=== PATIENT | male | born 1975 | race Hispanic/Latino ===

== ENCOUNTER 2017-11-08 09:26 | Day surgery (SDC) | payer BC ==
[2017-11-07 11:48] VITALS: BMI 36.3
[2017-11-08 10:00] VITALS: TEMP 97.7
[2017-11-08 10:12] LABS: BLOOD UREA NITROGEN 15 mg/dL (7-21); CALCIUM 9.7 mg/dL (8.4-10.5); GFR AFRICAN-AMERICAN > 60; GFR NON-AFRICAN AMERICAN > 60
[2017-11-08 10:14] LABS: BASO # 0.03 K/mm3 (0.0-2.0); BASO % 0.4 % (0.0-3.0); EOS # 0.3 (0.0-0.7); EOS % 3.6 % (1.5-5.0); GRAN # 4.58 (1.4-6.5); GRAN % 66.5 % (50.0-68.0); HEMOGLOBIN 16.3 g/dL (14.0-18.0); LYMPH # 1.5 (1.2-3.4); LYMPH % 22.4 % (22.0-35.0); MEAN CELL VOLUME 88.1 fl (80.0-105.0); MEAN CORPUSCULAR HEMOGLOBIN 29.8 pg (25.0-35.0); MEAN CORPUSCULAR HGB CONC 33.8 g/dl (31.0-37.0); MEAN PLATELET VOLUME 9.1 fl (7.0-11.0); MONO # 0.5 (0.1-0.6); MONO % 7.1 % (1.0-6.0); RBC 5.47 10^6/uL (3.5-6.1); RED CELL DISTRIBUTION WIDTH 13.4 % (11.5-14.5); WHITE BLOOD COUNT 6.9 10^3/ul (4.5-11.0)
[2017-11-08 10:19] LABS: INR 0.98 (0.93-1.08); PARTIAL THROMBOPLASTIN TIME 33.6 Seconds (25.1-36.5); PROTHROMBIN TIME 11.3 SECONDS (9.4-12.5)
[2017-11-08] MEDS ORDERED: Midazolam 2 MG/2 ML VIAL ONE ×2 (11:47→12:18)
[2017-11-08] MEDS ORDERED: Lidocaine 1% Inj (20ml) ONE (12:07)
[2017-11-08] MEDS ORDERED: Oxycodone/Acetaminophen 5/325 mg Tab PO PRN (13:14)
[2017-11-08] MEDS ORDERED: Sodium Chloride 0.45% 1,000 ML IV SCH (13:15)
[2017-11-08 13:40] VITALS: RESP 18
[2017-11-08 14:06] VITALS: O2SAT 94
[2017-11-08 15:06] VITALS: BP 130/65; PULSE 88
--- NOTE | 2017-11-08 19:31 | CT ---
PROCEDURE: CT guided left renal biopsy. HISTORY: 5 cm left renal lesion. Solid on ultrasound. Evaluate for malignancy P PHYSICIAN(S): Jack Crews MD. TECHNIQUE: The relative risks and indications of the procedure were explained to the patient and consent obtained. The patient was placed prone on the CT scanner and preliminary images through the kidneys obtained. Conscious sedation and monitoring were provided throughout the procedure by a nurse. There is a well-circumscribed 5 cm low-attenuation mass in the posterior aspect of the left kidney.. A posterior approach was selected and the area prepped and draped in the usual sterile fashion. 1% Xylocaine was used to anesthetize the skin and soft tissues. A 17-gauge guiding needle was advanced into the 5 cm low-attenuation mass. Approximately 8 cc of clear then patent fluid was aspirated. The specimen was sent for cytology. Using coaxial technique, core biopsies of the residual wall were obtained. The postprocedure images show no evidence of significant hemorrhage. IMPRESSION: 1. CT-guided left renal aspiration and biopsy as described above.
--- NOTE | 2017-11-08 19:33 | CT ---
PROCEDURE: CT guided left periaortic lymph node biopsy. HISTORY: 3 cm left periaortic lymph node. Scattered smaller lymph nodes in the mesenteric. Evaluate for lymphoma. PHYSICIAN(S): Jack Crews MD. TECHNIQUE: The relative risks and indications of the procedure were explained to the patient and consent obtained. The patient was placed prone on the CT scanner and preliminary images through the abdomen obtained. Conscious sedation and monitoring were provided throughout the procedure by a nurse. There is a 3 cm left periaortic lymph known below the renal vessels. A left posterior approach was selected and the area prepped and draped in the usual sterile fashion. 1% Xylocaine was used to anesthetize the skin and soft tissues. A 17-gauge guiding needle was advanced into the 3 cm left periaortic lymph node. Its position was confirmed with CT. Using coaxial technique, multiple core biopsies were obtained. The postprocedure images show no evidence of significant hemorrhage. IMPRESSION: 1. CT-guided left periaortic lymph node biopsy as described above. Specimens were sent for histology and flow cytometry
== END 2017-11-08 15:40 | disposition home or self-care (01) ==
LOC: SDS 09:26
PROVIDERS: ATTEND Radiology Vascular & Interventional Radiology
DX: C85.13 Unspecified B-cell lymphoma, intra-abdominal lymph nodes (principal); N28.89 Other specified disorders of kidney and ureter
CPT/HCPCS: 36415; 49180; 50200; 77012; 80048; 85025; 85610; 85730; 88108; 88305; 99152; 99153; J2250; J2405; J3010; J7030

== ENCOUNTER 2017-12-30 21:05 | Observation (INO) | payer BC ==
[2017-12-30 21:12] VITALS: BMI 37.5
[2017-12-30 21:53] LABS: BASO # 0.05 K/mm3 (0.0-2.0); BASO % 0.7 % (0.0-3.0); EOS # 0.2 (0.0-0.7); EOS % 2.6 % (1.5-5.0); GRAN # 5.18 (1.4-6.5); HEMOGLOBIN 14.5 g/dL (14.0-18.0); LYMPH # 0.9 (1.2-3.4); LYMPH % 12.4 % (22.0-35.0); MEAN CELL VOLUME 86.5 fl (80.0-105.0); MEAN CORPUSCULAR HEMOGLOBIN 29.3 pg (25.0-35.0); MEAN CORPUSCULAR HGB CONC 33.9 g/dl (31.0-37.0); MEAN PLATELET VOLUME 8.9 fl (7.0-11.0); MONO # 1.1 (0.1-0.6); MONO % 14.3 % (1.0-6.0); RBC 4.95 10^6/uL (3.5-6.1); RED CELL DISTRIBUTION WIDTH 13.6 % (11.5-14.5); WHITE BLOOD COUNT 7.4 10^3/ul (4.5-11.0)
[2017-12-30 21:55] LABS: VENOUS BLOOD GAS PO2 54 mm/Hg (30-55)
[2017-12-30 22:04] LABS: INR 1.03 (0.93-1.08); PARTIAL THROMBOPLASTIN TIME 32.8 Seconds (25.1-36.5); PROTHROMBIN TIME 11.8 SECONDS (9.4-12.5)
[2017-12-30 22:18] LABS: ALB/GLOB RATIO 1.5 (1.1-1.8); ALBUMIN 3.9 g/dL (3.0-4.8); ALT/SGPT 42 U/L (7-56); AST/SGOT 31 U/L (17-59); BLOOD UREA NITROGEN 18 mg/dL (7-21); CALCIUM 8.7 mg/dL (8.4-10.5); GFR AFRICAN-AMERICAN > 60; GFR NON-AFRICAN AMERICAN > 60
--- NOTE | 2017-12-30 22:30 | ED PDOC ---
Arrival/HPI - General Chief Complaint: Flu-like Symptoms Time Seen by Provider: 12/30/17 21:12 Historian: Patient - History of Present Illness Narrative History of Present Illness (Text): 12/30/17 21:21 42 year old male, with past medical history of hernia and non-hodgkin's lymphoma on chemotherapy, presents to the Emergency department for fever, chills and generalized weakness tonight. Patient informs visiting Dr. Riley, who advised him to visit the Emergency department for the mentioned symptoms. Patient denies any other associated symptoms including sore throat, body aches, nausea, vomiting, diarrhea, abdominal pain, chest pain, shortness of breath or any other complaints. Patient informs compliance with his chemotherapy. PMD: Dr. Riley Time/Duration: Prior to Arrival Symptom Onset: Gradual Symptom Course: Unchanged Activities at Onset: Light Past Medical History - Provider Review Nursing Documentation Reviewed: Yes - Infectious Disease Hx of Infectious Diseases: None - Tetanus Immunization Tetanus Immunization: Unknown - Cardiac Hx Pacemaker: No - Pulmonary Hx Respiratory Disorders: No Hx Sleep Apnea: Yes - Neurological Hx Paralysis: No - HEENT Hx HEENT Disorder: No - Renal Hx Renal Disorder: No - Endocrine/Metabolic Hx Endocrine Disorders: No - Hematological/Oncological Hx Blood Transfusions: No Hx Lymphoma: Yes (non hodgkins) Other/Comment: waldenstroms disorder - Integumentary Hx Dermatological Disorder: No - Musculoskeletal/Rheumatological Hx Musculoskeletal Disorders: Yes - Gastrointestinal Hx Gastrointestinal Disorders: Yes (umbilical hernia) - Genitourinary/Gynecological Hx Genitourinary Disorders: No - Psychiatric Hx Emotional Abuse: No Hx Physical Abuse: No Hx Substance Use: No - Surgical History Hx Orthopedic Surgery: Yes (Rotator cuff) - Anesthesia Hx Anesthesia: Yes Hx Anesthesia Reactions: No Hx Malignant Hyperthermia: No - Suicidal Assessment Feels Threatened In Home Enviroment: No Family/Social History - Physician Review Nursing Documentation Reviewed: Yes Family/Social History: No Known Family HX Smoking Status: Never Smoked Hx Alcohol Use: Yes (RARE) Frequency of alcohol use: Socially Hx Substance Use: No Allergies/Home Meds Allergies/Adverse Reactions: Allergies No Known Allergies Allergy (Verified 12/30/17 21:12) Home Medications: Home Meds Medication Instructions Recorded Confirmed Unobtainable 12/31/17 12/31/17 Review of Systems - Physician Review All systems were reviewed & negative as marked: Yes - Review of Systems Constitutional: Fevers, Other (Chills+generalized weakness) Eyes: Normal ENT: Normal. absent: Sore Throat Respiratory: Normal. absent: SOB Cardiovascular: Normal. absent: Chest Pain Gastrointestinal: Normal. absent: Abdominal Pain, Diarrhea, Nausea, Vomiting Genitourinary Male: Normal Musculoskeletal: Normal Skin: Normal Neurological: Normal Endocrine: Normal Hemo/Lymphatic: Normal Psychiatric: Normal Physical Exam Vital Signs Reviewed: Yes Vital Signs Temp Pulse Resp BP Pulse Ox 12/31/17 02:10 93 H 20 141/73 96 12/30/17 21:20 98.6 F 90 20 123/66 96 Temperature: Afebrile Blood Pressure: Normal Pulse: Regular Respiratory Rate: Normal Appearance: Positive for: Well-Appearing, Non-Toxic, Comfortable Pain Distress: None Mental Status: Positive for: Alert and Oriented X 3 Medical Decision Making ED Course and Treatment: 12/30/17 21:21 Impression: 42 year old male presents to the Emergency department for fever, chills and generalized weakness. Plan: -- VBG -- EKG -- Labs -- CXR -- Blood Culture -- Urine Culture -- Urinalysis -- Reassess and disposition Progress Notes:case d/w dr ingram for observation no ab at this time 12/31/17 16:04 - Lab Interpretations Lab Results: 12/30/17 21:40 12/30/17 21:40 Lab Results 12/30/17 22:55: Urine Color Light yellow, Urine Appearance Clear, Urine pH 7.0, Ur Specific [place] 1.015, Urine Protein Negative, Urine Glucose (UA) Negative, Urine Ketones Negative, Urine Blood Negative, Urine Nitrate Negative, Urine Bilirubin Negative, Urine Urobilinogen 1.0 H, Ur Leukocyte Esterase Negative 12/30/17 21:40: Sodium 139, Chloride 101, Potassium 3.8, Carbon Dioxide 27, Anion Gap 15, BUN 18, Creatinine 1.0, Est GFR ( Amer) > 60, Est GFR (Non- Af Amer) > 60, Random Glucose 113 H, Calcium 8.7, Phosphorus 4.4, Magnesium 2.1 , Total Bilirubin 1.2, AST 31, ALT 42, Alkaline Phosphatase 83, Total Protein 6.5, Albumin 3.9, Globulin 2.6, Albumin/Globulin Ratio 1.5 12/30/17 21:40: pO2 54, VBG pH 7.40, VBG pCO2 46.0, VBG HCO3 28.5 H, VBG Total CO2 29.9 H, VBG O2 Sat (Calc) 95.1 H, VBG Base Excess 3.0 H, VBG Potassium 3.7, Sodium 136.0, Chloride 102.0, Glucose 121 H, Lactate 0.9, FiO2 21.0, Venous Blood Potassium 3.7 12/30/17 21:40: PT 11.8, INR 1.03, APTT 32.8 12/30/17 21:40: WBC 7.4, RBC 4.95, Hgb 14.5, Hct 42.8, MCV 86.5, MCH 29.3, MCHC 33.9, RDW 13.6, Plt Count 241, MPV 8.9, Gran % 70.0 H, Lymph % (Auto) 12.4 L, [place] % (Auto) 14.3 H, Eos % (Auto) 2.6, Baso % (Auto) 0.7, Gran # 5.18, Lymph # (Auto) 0.9 L, [place] # (Auto) 1.1 H, Eos # (Auto) 0.2, Baso # (Auto) 0.05 - RAD Interpretation Radiology Orders: 12/30/17 21:21 CHEST PORTABLE [RAD] Stat - Medication Orders Current Medication Orders: Discontinued Medications Acetaminophen (Tylenol 325mg Tab) 650 mg PO Q4H PRN PRN Reason: Fever >100.5 F Allopurinol (Zyloprim) 100 mg PO DAILY KAMRAN Sodium Chloride (Sodium Chloride 0.9%) 1,000 mls @ 100 mls/hr IV .Q10H STA Stop: 12/31/17 12:23 Last Admin: 12/31/17 05:03 Dose: 100 mls/hr eMAR Start Stop Document 12/31/17 05:03 MM (Rec: 12/31/17 05:04 MM [id number]) Intravenous Solution Start Date 12/31/17 Start Time 03:40 End Date 12/31/17 Zolpidem Tartrate (Ambien) 10 mg PO STAT STA PRN Reason: Protocol Stop: 12/31/17 01:07 Last Admin: 12/31/17 02:49 Dose: 10 mg Re-Assess: Reassess Psych Meds Document 12/31/17 03:49 MM (Rec: 12/31/17 04:56 MM [id number]) Reassess Psych Med Effective - Scribe Statement The provider has reviewed the documentation as recorded by the Scribe Willem Lee. All medical record entries made by the Scribe were at my direction and personally dictated by me. I have reviewed the chart and agree that the record accurately reflects my personal performance of the history, physical exam, medical decision making, and the department course for this patient. I have also personally directed, reviewed, and agree with the discharge instructions and disposition. Disposition/Present on Arrival - Present on Arrival Any Indicators Present on Arrival: No History of DVT/PE: No History of Uncontrolled Diabetes: No Urinary Catheter: No History of Decub. Ulcer: No History Surgical Site Infection Following: None - Disposition Have Diagnosis and Disposition been Completed?: Yes Diagnosis: Fever Disposition: HOSPITALIZED Disposition Time: 00:30 Condition: FAIR
[2017-12-30 23:05] LABS: URINE BILIRUBIN NEGATIVE (NEGATIVE); URINE BLOOD NEGATIVE (NEGATIVE); URINE GLUCOSE (UA) NEGATIVE (NEGATIVE); URINE LEUKOCYTE ESTERASE NEGATIVE Leu/uL (NEGATIVE); URINE PROTEIN NEGATIVE mg/dL (<30 mg/dL)
[2017-12-30 23:07] LABS: URINE APPEARANCE CLEAR (CLEAR); URINE COLOR LIGHT YELLOW (YELLOW)
[2017-12-31] MEDS ORDERED: Sodium Chloride 0.9% 1,000 ML IV STA (02:24)
[2017-12-31 06:01] VITALS: BP 153/77; PULSE 99; TEMP 97.7
[2017-12-31 07:29] LABS: BASO # 0.04 K/mm3 (0.0-2.0); BASO % 0.6 % (0.0-3.0); EOS # 0.2 (0.0-0.7); EOS % 2.8 % (1.5-5.0); GRAN # 5.05 (1.4-6.5); GRAN % 73.5 % (50.0-68.0); HEMOGLOBIN 14.6 g/dL (14.0-18.0); LYMPH # 1.1 (1.2-3.4); LYMPH % 16.4 % (22.0-35.0); MEAN CORPUSCULAR HEMOGLOBIN 28.7 pg (25.0-35.0); MEAN PLATELET VOLUME 9.2 fl (7.0-11.0); MONO # 0.5 (0.1-0.6); MONO % 6.7 % (1.0-6.0); RBC 5.08 10^6/uL (3.5-6.1); RED CELL DISTRIBUTION WIDTH 13.7 % (11.5-14.5); WHITE BLOOD COUNT 6.9 10^3/ul (4.5-11.0)
[2017-12-31 07:52] LABS: ALB/GLOB RATIO 1.4 (1.1-1.8); ALBUMIN 3.7 g/dL (3.0-4.8); ALT/SGPT 42 U/L (7-56); AST/SGOT 27 U/L (17-59); BLOOD UREA NITROGEN 17 mg/dL (7-21); CALCIUM 8.5 mg/dL (8.4-10.5); GFR AFRICAN-AMERICAN > 60; GFR NON-AFRICAN AMERICAN > 60
--- NOTE | 2017-12-31 09:16 | RAD ---
HISTORY: Sepsis Patient COMPARISON: No prior. FINDINGS: LUNGS: Mild linear platelike atelectasis is seen at the left lung base and a minimal amount at the right lung base. Right costophrenic angle is excluded from the radiograph. No alveolar infiltrate is seen. Mild interstitial changes cannot be excluded, although a portion may be related to overlying soft tissue. Trachea is midline. There is evidence of prior cervical spine surgery. PLEURA: No pneumothorax or effusion. CARDIOVASCULAR: No CHF. OSSEOUS STRUCTURES: See above. VISUALIZED UPPER ABDOMEN: Normal. OTHER FINDINGS: None. IMPRESSION: Mild platelike atelectasis at the lung bases. No focal alveolar infiltrate.
[2017-12-31 11:19] VITALS: RESP 18; O2SAT 94
--- NOTE | 2017-12-31 22:46 | CARD ---
APPROVED REPORT EKG Measurement Heart [id number] CO 176P50 [id number] <Conclusion> Normal sinus rhythm Incomplete right bundle branch block Borderline ECG
--- NOTE | 2018-01-01 00:07 | HP ---
DATE OF EXAM: 12/31/2017 This is Jameel Salazar's admission history and physical for observation for Dr. Riley. CHIEF COMPLAINT: High temperature. 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 Riley. He was recommended to go to the Emergency Room after an episode where the patient reported a high temperature to 102 with possible early chills with the patient then seen in the Emergency Room by with weakness also a complaint. Otherwise the patient denies any other associated symptoms such as sore throat, nausea, vomiting, diarrhea, body aches. At present, he is seen sitting up in bed after IV fluids were given. Patient without complaints at all. Since admission his temperatures have been afebrile. His labs all returned as negative and the patient is anxious for discharge to home. ALLERGIES: NO KNOWN ALLERGIES. MEDICATIONS: Include Ambien and allopurinol, recently started. PAST MEDICAL HISTORY: Significant for recently diagnosed non-Hodgkin lymphoma and umbilical or ventral hernia, history of rotator cuff disorder. Otherwise denied. FAMILY HISTORY AND SOCIAL HISTORY: Patient is a nonsmoker, rare alcohol use, otherwise noncontributory. REVIEW OF SYSTEMS: Patient's 12-point review of systems is done, which is negative to question except for items mentioned in the history of present illness. PHYSICAL EXAMINATION: VITAL SIGNS: At present the patient's vital signs include a temperature of 97.7 since admission. His temperatures have been 98.6, 97.7 and 97.7 as just mentioned. His pulse is 99, respirations 18, blood pressure 153/77 with a pulse ox of 94%. HEENT: Unremarkable. NECK: Supple. HEART: Tachy rate, regular rhythm. LUNGS: Clear. ABDOMEN: Soft, nontender. EXTREMITIES: No edema. SKIN: Warm and dry. NEUROLOGIC: Awake, alert and oriented x3. LABORATORY DATA: Patient's labs were done to include a white blood cell count this morning of 6.9, hemoglobin 14.6, hematocrit of 44.2, platelet count of 244,000. The chem metabolic panel, completely within normal range. Blood gas was drawn, which was in normal range. Urinalysis was negative for sugar, blood and protein. INR was 1.03. His CBC on admission included a white blood cell count of 7.4, hemoglobin 14.5, hematocrit of 42.8, platelet count of 241,000. Patient had a chest x-ray done this admission, which was read as mild plate-like atelectasis at the lung bases, no focal alveolar infiltrates. An EKG was done with no interpretation yet. was normal sinus rhythm. Other testing for this patient previously included a PET CT scan done on 10/26/2017 showing 2.2 cm lateral right upper pole partially exophytic lesion without evidence of FDG uptake measuring 20 HU in determining malignant neoplasm not excluded, also indeterminate retroperitoneal adenopathy measuring up to 2.1 cm in the left without evidence of associated increased FDG uptake, mild mesenteric inflammatory change, subcentimeter mesenteric lymph nodes, splenomegaly. The patient then had a tissue biopsy by Dr. Jack Crews on 11/08/2017 with the results showing kidney cysts, also B-cell lymphoma with focal plasmacytic differentiation on lymph node biopsies then. The assessment for this patient is that of fever of unknown origin, a history of recently diagnoses B-cell plasmacytic lymphoma or non-Hodgkin lymphoma with kidney cysts, atelectasis of the lung, ventral hernia, also insomnia. The plan for this patient, after conversation with Dr. Riley is to give IV hydration. We will ask for an Infectious Diseases consult as indicated. We will repeat his labs with Tylenol as needed for pain or temperature. We will continue his Ambien at bedtime along with Zyloprim or allopurinol along with IV fluids. Blood cultures, urine culture will be sent. This is a complex patient with a comprehensive medical and necessary and appropriate visit carried out in excess of 20 minutes [id number] time with the patient. One is referred to the Emergency Room records also. Duy Luque MD
--- NOTE | 2018-01-01 04:02 | DS ---
This is Jameel Salazar's discharge summary after being on observation for a fever of unknown origin. SUBJECTIVE: Patient is a 42-year-old male feeling markedly improved today after IV fluids were given overnight with repeat labs done showing a normal CBC with a chem panel also within normal range with no further episodes of fever. 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 OBJECTIVE/PHYSICAL EXAMINATION: VITAL SIGNS: Temperature 97.7, pulse 99, respirations 18, blood pressure 152/77, weight is 325 pounds, height 6 feet 6 inches tall. Pulse ox 94%. HEENT: Unremarkable. NECK: Supple. HEART: Regular rate. LUNGS: Clear. ABDOMEN: Obese, soft, nontender. EXTREMITIES: No edema. SKIN: Warm and dry. NEUROLOGIC: Awake, alert, and oriented x3. LABORATORY DATA: Patient's labs were done. White blood cell count of 6.9, hemoglobin 14.6, hematocrit 44.2, platelet count 244,000 with a normal chem metabolic panel. ASSESSMENT: For this patient is that of fever of unknown origin with recently diagnosed B-cell lymphoma, non-Hodgkin lymphoma, recent treatment with Rituxan with elevated temperature, now resolved, possibly medication related. Also insomnia, ventral hernia. PLAN: For this patient, after conversation with IV fluids. We will continue his present medical regimen including allopurinol and his Ambien with followup in 2 days time in office for further treatment as indicated. Patient has regular diet. He is in no acute distress with discharge from observation today. Duy Luque MD
== END 2017-12-31 12:07 | disposition home or self-care (01) ==
LOC: ED 21:05 → ERH 12-31 00:03 → 3RNO 12-31 03:00
PROVIDERS: ADMIT Family Medicine; ATTEND Family Medicine
DX: R50.9 Fever, unspecified (principal); C85.10 Unspecified B-cell lymphoma, unspecified site; G47.00 Insomnia, unspecified; K43.9 Ventral hernia without obstruction or gangrene; G47.30 Sleep apnea, unspecified; N28.1 Cyst of kidney, acquired
CPT/HCPCS: 36415; 71045; 80053; 81003; 82803; 83735; 84100; 85025; 85610; 85730; 87040; 87086; 93005; 99285; G0378; J7040